=== PATIENT | female | born 1985 | race African-American/Black ===

== ENCOUNTER 2016-09-23 17:28 | Emergency (ER) | payer OTHER ==
[2016-09-23 17:12] LABS: INFLUENZA A NEG (NEG); INFLUENZA B NEG (NEG)
[~2016-09-23 17:28] MED LIST: KEPPRA500 M2 DOB; METRONIDAZOLE PO
== END 2016-09-23 17:50 | disposition home or self-care (01) ==
LOC: CFTX 17:28
PROVIDERS: Nurse Practitioner Family
DX: J02.9 Acute pharyngitis, unspecified (principal); J06.9 Acute upper respiratory infection, unspecified
CPT/HCPCS: 87651; 87804; 99282

== ENCOUNTER 2016-10-01 19:31 | Emergency (ER) | payer OTHER ==
[2016-10-01 19:28] LABS: INFLUENZA A POS (NEG); INFLUENZA B NEG (NEG)
== END 2016-10-01 19:51 | disposition home or self-care (01) ==
LOC: CFTX 19:31
DX: J10.1 Influenza due to other identified influenza virus with other respiratory manifestations (principal)
CPT/HCPCS: 87651; 87804; 99282

== ENCOUNTER 2017-01-30 15:31 | Emergency (ER) | payer MEDICAID ==
[~2017-01-30] VITALS: Ht 157.5 cm; Wt 80.3 kg
[2017-01-30 16:04] LABS: URINE SOURCE CLEAN CATCH
[2017-01-30 16:09] LABS: URINE APPEARANCE CLEAR; URINE BILIRUBIN NEG (NEG); URINE BLOOD NEG (NEG); URINE COLOR YELLOW; URINE GLUCOSE NEG (NEG); URINE KETONE NEG (NEG); URINE LEUKOCYTE ESTERASE NEG (NEG); URINE NITRATE NEG (NEG); URINE PH 6.5 (5-8); URINE PROTEIN NEG (NEG); URINE SPECIFIC GRAVITY 1.031 (1.003-1.035)
[2017-01-30 16:16] LABS: CULTURE INDICATED? NO
[2017-02-02 00:31] LABS: CHLAMYDIA TRACH Not Detected (Not Detected); N GONOR Not Detected (Not Detected)
== END 2017-01-30 16:48 | disposition home or self-care (01) ==
LOC: CED 15:31 → CFTX 15:31
PROVIDERS: Physician Assistant
DX: N89.8 Other specified noninflammatory disorders of vagina (principal)
CPT/HCPCS: 81003; 84703; 87220; 87491; 87591; 87808; 87905; 99284

== ENCOUNTER 2017-02-16 16:52 | Emergency (ER) | payer MEDICAID ==
[~2017-02-16] VITALS: Ht 157.5 cm; Wt 79.8 kg
== END 2017-02-16 18:47 | disposition home or self-care (01) ==
LOC: CED 16:52
DX: R51 Headache (principal)
CPT/HCPCS: 84703; 96374; 96375; 99284; J1100; J1200; J1885; J2765